=== PATIENT | male | born 1980 | race Hispanic/Latino ===

== ENCOUNTER 2018-09-27 07:33 | Emergency (ER) | payer SELFPAY ==
[2018-09-27] MEDS ORDERED: TORADOL PO (08:53)
[2018-09-27 08:59] VITALS: BP 148/66
== END 2018-09-27 09:13 | disposition home or self-care (01) | DRG 563 ==
LOC: ED 07:33
DX: S46.911A Strain of unspecified muscle, fascia and tendon at shoulder and upper arm level, right arm, initial encounter (principal); X50.3XXA Overexertion from repetitive movements, initial encounter; Y93.89 Activity, other specified; Y92.79 Other farm location as the place of occurrence of the external cause